=== PATIENT | female | born 1975 | race African-American/Black ===

== ENCOUNTER 2018-06-24 12:49 | Emergency (ER) | payer OTHER ==
[~2018-06-24] VITALS: Ht 154.9 cm; Wt 52.6 kg
== END 2018-06-24 16:39 | disposition home or self-care (01) ==
LOC: ER 12:49
DX: K29.70 Gastritis, unspecified, without bleeding (principal)

== ENCOUNTER 2020-10-03 11:00 | Inpatient (IN) | payer OTHER ==
[~2020-10-03] VITALS: Ht 154.9 cm; Wt 54.4 kg
[2020-10-14] MEDS ORDERED: CODE1TAB37 PO (14:00)
[2020-10-14] MEDS ORDERED: MACROBID 100 M100 MG PO (14:00)
[2020-10-14] MEDS ORDERED: DITROPAN XL5 MG PO (14:02)
== END 2020-10-14 14:39 | disposition home or self-care (01) | DRG 742 ==
LOC: OB/GYN 10-09 06:13 → O/R 10-09 06:13 → SURH 10-09 11:00 → OB/GYN 10-09 13:34
PROVIDERS: Surgery; ADMIT Obstetrics & Gynecology; ATTEND Obstetrics & Gynecology
PROC: 0UB77ZZ Excision of Bilateral Fallopian Tubes, Via Natural or Artificial Opening (ICD-10-PCS; 2020-10-09)
PROC: 0UQF8ZZ Repair Cul-de-sac, Via Natural or Artificial Opening Endoscopic (ICD-10-PCS; 2020-10-09)
PROC: 0USG8ZZ Reposition Vagina, Via Natural or Artificial Opening Endoscopic (ICD-10-PCS; 2020-10-09)
PROC: 0TJB8ZZ Inspection of Bladder, Via Natural or Artificial Opening Endoscopic (ICD-10-PCS; 2020-10-09)
PROC: 0UT9FZZ Resection of Uterus, Via Natural or Artificial Opening With Percutaneous Endoscopic Assistance (ICD-10-PCS; principal; 2020-10-09 11:00)
PROC: 0TQB0ZZ Repair Bladder, Open Approach (ICD-10-PCS; 2020-10-09 11:00)
PROC: 30233N1 Transfusion of Nonautologous Red Blood Cells into Peripheral Vein, Percutaneous Approach (ICD-10-PCS; 2020-10-11)
DX: D25.2 Subserosal leiomyoma of uterus (principal); K66.1 Hemoperitoneum; N99.71 Accidental puncture and laceration of a genitourinary system organ or structure during a genitourinary system procedure; S37.23XA Laceration of bladder, initial encounter; D62 Acute posthemorrhagic anemia; N92.1 Excessive and frequent menstruation with irregular cycle; N81.5 Vaginal enterocele

== ENCOUNTER → 2020-10-20 08:29 | Outpatient (CLI) | payer OTHER ==
[~2020-10-20 08:29] MED LIST: CODE1TAB37 PO; DITROPAN XL5 MG PO; MACROBID 100 M100 MG PO
== END | disposition home or self-care (01) ==
LOC: LAB 08:29
PROVIDERS: ATTEND Surgery
DX: D64.89 Other specified anemias (principal); S37.20XD Unspecified injury of bladder, subsequent encounter

== ENCOUNTER 2020-10-23 10:33 | Outpatient (CLI) | payer OTHER | END 2020-10-23 10:48 | disposition home or self-care (01) | LOC: RX STUDY 10:33 | PROVIDERS: ATTEND Surgery | DX: S37.20XD Unspecified injury of bladder, subsequent encounter (principal) ==